=== PATIENT | female | born 1985 | race Caucasian/White ===

== ENCOUNTER 2017-05-24 09:47 | Day surgery (SDC) | payer OTHER ==
[2017-05-24] MEDS ORDERED: ADENOSINE 6 MG/2 ML VIAL IVP ONE (10:45)
--- NOTE | 2017-05-24 12:07 | CPEKG ---
Heart Rate: 52 RR Interval: 1154 P-R Interval: 114 QRSD Interval: 88 QT Interval: 444 QTC Interval: 413 P [place]: 80 QRS [place]: 76 T Wave [place]: 71 EKG Severity - NORMAL ECG - EKG Impression: SINUS RHYTHM EKG Impression: SHORT VT INTERVAL Electronically Signed By: Kitty Montgomery 24-May-2017 19:05:58
--- NOTE | 2017-05-24 12:37 | PDHPUP ---
History & Physical Update H&P update statement: This history and physical update is based on an assessment of the patient which was completed after admission or registration (within 24 hours), but prior to the surgery/procedure. H&P update: H&P reviewed & patient examined, no change in patient's condition since H&P completed
--- NOTE | 2017-05-24 13:04 | ECHO ---
[email or web address] [address] [address] Main: [phone] Fax: Transthoracic Echocardiogram Name: BHAVNA LEGGETT MR#: [id number] Study Date: 05/24/2017 Study Time: 10:46 AM Date of : 1985 Age: 32 year(s) Height: 157.5 cm (62 in.) Weight: 66.68 kg (147 lb.) BSA: 1.68 m2 Gender: Female Examination: Echo Indication: Bradycardia with bubble Image Quality: Contrast: Requested by: Kitty Montgomery BP: 111 mmHg/67 mmHg Heart Rate: Rhythm: Sinus bradycardia Indication: Bradycardia with bubble Procedure Staff Special Needs Tutor: Kevin Godoy Reading Physician: Nirmal Prakash Requesting Provider: Conclusions: Normal size left ventricle. Normal global systolic LV function. EF is 64 %. No regional wall motion abnormality. Normal RV function. The left atrium is normal in size. The right atrium is normal in size. Trivial tricuspid valve regurgitation. The pulmonary artery pressure is mildly increased. No pericardial effusion. Measurements: Chambers Valvular Assessment AV/MV Valvular Assessment TV/PV Normal Normal Normal Name Value Range Name Value Range Name Value Range Ao [place] (MM): 2.8 cm (2.2 cm-3.7 AV Vmax: 1.17 m/s (1 m/s-1.7 TR Vmax: 2.70 mm/s ( - ) cm) m/s) TR PGmax: 29 mmHg ( - ) IVSd (2D): 0.7 cm (0.6 cm-1.1 AV maxP mmHg ( - ) syst. PAP: 34 mmHg ( - ) cm) LVOT Vmax: 0.62 m/s (0.7 m/s-1.1 PV Vmax: 0.69 m/s (0.6 m/s-0.9 LVDd (2D): 4.8 cm (3.9 cm-5.3 m/s) m/s) cm) MV E Vmax: 0.95 m/s ( - ) PV PGmax: 2 mmHg ( - ) LVDs (2D): 3.1 cm (2.1 cm-4 MV A Vmax: 0.45 m/s ( - ) cm) MV E/A: 2.11 ( - ) LVPWd (2D): 0.8 cm ( - ) LVEF (2D): 64 (>=54 %) Continued Measurements: Valvular Assessment AV/MV Valvular Assessment TV/PV Patient: BHAVNA LEGGETT Study Date: 05/24/2017 Page 1 of 2 10:46 AM Name Value Name Value MV E/E' Septal: 8.60 CVP (est.): 5 mmHg MV E/E' Lateral: 7.70 Findings: Left Ventricle: Normal size left ventricle. Normal global systolic LV function. EF is 64 %. No regional wall motion abnormality. Right Ventricle: Normal size right ventricle. Normal RV function. Left Atrium: The left atrium is normal in size. An agitated saline study was performed and was negative for intracardiac shunting. Right Atrium: The right atrium is normal in size. Mitral Valve: The mitral valve is normal in appearance and function. There is no mitral valve regurgitation. Aortic Valve: The aortic valve is normal in appearance and function. The aortic valve is tri-leaflet. There is no aortic valve regurgitation. No aortic valve stenosis is present. Tricuspid Valve: The tricuspid valve appears normal. Trivial tricuspid valve regurgitation. The pulmonary artery pressure is mildly increased. Pulmonic Valve: The pulmonic valve is normal in appearance and function. Aorta: The aorta is normal. Pericardium: No pericardial effusion. No pleural effusion. (No Signature Object) Patient: BHAVNA LEGGETT Study Date: 05/24/2017 Page 2 of 2 10:46 AM [id number]
--- NOTE | 2017-05-24 19:06 | CPIP ---
[f rep st] INVASIVE CARDIAC PROCEDURE DATE OF PROCEDURE: 05/24/2017 ADENOSINE CHALLENGE INDICATION: Possible accessory pathway seen during stress test. Rule out pre-excitation. COMPLICATIONS: None. PROCEDURE OF PROCEDURE: Informed consent was obtained. The patient was established to the monitor. Defibrillation pads were placed on the patient. With continuous EKG monitoring, the patient receive d initially 6 mg of adenosine. There was no AV block or pre-excitation. She had mild increase in he art rate. Blood pressure remained stable. We then performed 4 more injections, 12 mg, 18 mg x2, and 24 mg of adenosine. Only with 18 mg of adenosine on the 2nd time did she have a PAC with a slightly longer VA interval and no evidence of pre-excitation. CONCLUSIONS: 1. No evidence of AV block. 2. No evidence of pre-excitation. 3. This is a nondiagnostic study and does not completely rule out accessory pathway, however, conduc tion of a PAC without pre-excitation makes an accessory pathway less likely. 4. The patient will be discharged home in stable condition. 5. She was asked to purchase a [employer] monitor for her iPhone and send us rhythm strips when she is h aving palpitations or any other symptoms of concerns. 6. Follow up with Dr. Montgomery in 4-6 weeks. 7. Consider formal EP consultation for palpitations and possible pre-excited beats seen on stress te sting. /[id number]/MODL
== END 2017-05-24 13:18 | disposition home or self-care (01) ==
LOC: FCP 09:47 → FCATH 09:47 → EDSTATUS 11:00 → FCP 13:18
PROVIDERS: ATTEND Internal Medicine Cardiovascular Disease
PROC: 3E033XZ Introduction of Vasopressor into Peripheral Vein, Percutaneous Approach (ICD-10-PCS; principal; 2017-05-24)
DX: R94.31 Abnormal electrocardiogram [ECG] [EKG] (principal); I49.3 Ventricular premature depolarization; R07.9 Chest pain, unspecified; F41.9 Anxiety disorder, unspecified
CPT/HCPCS: J0153